=== PATIENT | female | born 1975 | race Caucasian/White ===

== ENCOUNTER 2019-06-22 20:34 | Emergency (ER) | payer OTHER ==
[~2019-06-22] VITALS: Ht 167.6 cm; Wt 101.4 kg
[2019-06-22 20:36] VITALS: BP 183/118
[2019-06-22] MEDS ORDERED: naproxen 500mg tablet PO ONE (21:20)
[2019-06-22] MEDS ORDERED: NAPR-56 PO (21:23)
[2019-06-22] MEDS ORDERED: CLIN300C53 PO (21:23)
[2019-06-22] MEDS ORDERED: LIDOcaine 1% w/EPI 1:200,000 injection 10mL vial IM ONE (21:25)
[2019-06-22] MEDS ORDERED: LIDOcaine 1% W/epiNEPHrine 1:100,000 20ml vial IJ ONE (21:30)
--- NOTE | 2019-06-22 22:33 | NUR ---
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
[2019-06-22] MEDS ORDERED: clindamycin 150mg capsule PO ONE (22:55)
== END 2019-06-22 23:04 | disposition home or self-care (01) ==
LOC: ER 20:35
DX: S81.012A Laceration without foreign body, left knee, initial encounter (principal); Z88.0 Allergy status to penicillin; Z88.1 Allergy status to other antibiotic agents; Z88.2 Allergy status to sulfonamides; Z79.2 Long term (current) use of antibiotics; Z79.899 Other long term (current) drug therapy; Z98.890 Other specified postprocedural states; W01.198A Fall on same level from slipping, tripping and stumbling with subsequent striking against other object, initial encounter; Y93.89 Activity, other specified; Y92.89 Other specified places as the place of occurrence of the external cause; Y99.8 Other external cause status
CPT/HCPCS: 12002; 99284

== ENCOUNTER 2022-04-02 21:01 | Emergency (ER) | payer BC, OTHER ==
[~2022-04-02] VITALS: Ht 167.6 cm; Wt 95.2 kg
[2022-04-02 21:29] VITALS: BP 165/86
[2022-04-02] MEDS ORDERED: HYDR-3965 PO (22:17)
[2022-04-02] MEDS ORDERED: ONDA4TAB12 PO (22:17)
== END 2022-04-02 22:29 | disposition home or self-care (01) ==
LOC: ER 21:01
DX: S92.591A Other fracture of right lesser toe(s), initial encounter for closed fracture (principal); S61.411A Laceration without foreign body of right hand, initial encounter; Z88.0 Allergy status to penicillin; Z88.1 Allergy status to other antibiotic agents; Z79.899 Other long term (current) drug therapy; Z88.2 Allergy status to sulfonamides; W18.39XA Other fall on same level, initial encounter; Y93.89 Activity, other specified; Y92.89 Other specified places as the place of occurrence of the external cause; Y99.8 Other external cause status
CPT/HCPCS: 73660; 99284